=== PATIENT | male | born 1935 | race Caucasian/White ===

== ENCOUNTER 2023-01-27 00:52 | Inpatient (IN) ==
[2023-01-27] MEDS ORDERED: ONDANSETRON INJ 2 MG/ML 2 ML VIAL ONE ×2 (01:03→15:32)
[2023-01-27] MEDS ORDERED: SODIUM CHLORIDE 0.9% 250 ML IV ONE (01:23)
[2023-01-27] MEDS ORDERED: fentaNYL citrate PF 100 MCG/2 ML VIAL IV ONE (01:23)
[2023-01-27] MEDS ORDERED: ONDANSETRON INJ 2 MG/ML 2 ML VIAL IV STA (01:23)
[2023-01-27] MEDS: SODIUM CHLORIDE 0.9% 1,000 ML IV SCH ×3 (01:30→18:24)
[2023-01-27 01:32] LABS: Basophils # (auto) 0.06 K/uL (0.00-0.20); Basophils % (auto) 0.7 %; Eosinophils # (auto) 0.09 K/uL (0.00-0.50); Hematocrit (blood only) 44.9 % (42.0-52.0); Hemoglobin 14.6 g/dl (14.0-18.0); Immature Granulocytes # (auto) 0.04 K/uL (0.01-0.20); Immature Granulocytes % (auto) 0.5 %; Lymphocytes # (auto) 1.07 K/uL (1.20-3.40); Lymphocytes % (auto) 12.2 %; Mean Corpuscular Hemoglobin 28.9 pg (25.0-34.0); Mean Corpuscular Hgb Conc 32.5 g/dL (32.0-36.0); Mean Corpuscular Volume 88.9 fL (80.0-100.0); Mean Platelet Volume 10.9 fL (9.4-12.4); Monocytes # (auto) 0.39 K/uL (0.11-0.59); Monocytes % (auto) 4.4 %; Neutrophils # (auto) 7.14 K/uL (1.40-6.50); Neutrophils % (auto) 81.2 %; Platelet Count 221 K/uL (130-400); RDW Coefficient of Variation 14.1 % (11.5-14.5); RDW Standard Deviation 45.1 fL (36.4-46.3); Red Blood Count 5.05 M/uL (4.70-6.10); White Blood Count 8.79 K/ul (4.8-10.8)
--- NOTE | 2023-01-27 01:39 | Emergency Department Note ---
Impression & Plan Cholecystitis ED Provider Note CHIEF COMPLAINT: Epigastric abdominal pain HISTORY OF PRESENT ILLNESS: This 87-year-old male patient with no significant past medical history other than a history of smoking presents to the emergency department with complaints of epigastric abdominal pain that radiates to the chest. Patient states she thought it was indigestion after eating at a greasy meal at a restaurant today for lunch. He denies any nausea, vomiting or fevers. He was uncertain about a bowel movement but believes he had one yesterday that was normal. Patient presented to the emergency department because he was concerned about his heart. REVIEW OF SYSTEMS: A review of systems was performed with positives and pertinent negatives listed in the history of present illness. 10 systems were reviewed and are otherwise negative. ALLERGIES: see below MEDICATIONS: see below PMH: see below SOCIAL HISTORY: see below DDx: GERD, peptic ulcer disease, pancreatitis, cholecystitis, CAD, pneumonia among others. PHYSICAL EXAM: Vital signs reviewed. General: Well-appearing 87-year-old male, in no significant distress. HEENT: No scleral icterus, PERRLA, neck supple. Moist mucous membranes Cardiovascular: Regular rate and rhythm, no extra sounds. Pulmonary: Clear to auscultation bilaterally, normal work of breathing. Abdomen: Soft, tender to palpation in the right upper quadrant and epigastric region with minimal guarding, no rebounding, nondistended, positive bowel sounds. Musculoskeletal: Atraumatic, no peripheral edema. Neurologic: Patient awake alert and oriented x 3, speech is clear Skin: Warm, dry, no rash EMERGENCY DEPARTMENT COURSE/MDM: This patient was evaluated and appeared to be in no significant distress. IV access was obtained and laboratory work was drawn. Patient was placed on panel monitor. Patient received some IV fentanyl and IV Zofran for his discomfort. He was given 250 mL bolus of normal saline solution, and then run at 100 mL/h. EKG reveals no evidence of acute ischemic change. Chest x-ray is clear. Physical examination revealed some tenderness along the epigastric and right upper quadrant. Ultrasound of the gallbladder was performed and is significant for some mild gallbladder wall thickening and cholelithiasis. Patient's laboratory work reveals a normal WBC, normal troponin and normal LFTs. Case was discussed with general surgery Hoang Padilla PA-C who was agreed to evaluate the patient. Patient was medicated with IV Mefoxin. Patient will be evaluated by the hospitalist service for admission and general surgery consultation. Patient and family are aware of the plan and agreed. MONITORING: An order for cardiac monitoring was placed and the patient is noted to be in a sinus rhythm with first-degree AV block at 65 beats per minute. RADIOLOGY: Chest x-ray to my interpretation reveals no focal lung consolidation or failure, otherwise defer to radiology below. Ultrasound of the gallbladder to my interpretation reveals mild wall thickening and cholelithiasis. Otherwise defer to radiology's overread below. CT of the abdomen and pelvis to my interpretation is concerning for acute cholecystitis with cholelithiasis. Otherwise defer to radiology's read below. EKG: To my interpretation reveals sinus bradycardia with first-degree AV block at 53 bpm. left anterior fascicular block. No PVC, no PAC. Normal ST segments. DISPOSITION: Admission Past Med/Surg History Social History Smoking Status: Former smoker Second Hand Exposure: No; Do You Dip or Chew Tobacco: No; Hx Alcohol Use: No Hx Substance Use: No Preferred Language: Slovak Communication Ability: Effective Visual Impairment: Partially Limited Mold Sprayer Required: No Beliefs That Will Affect Care: None Current Living Situation: Spouse Feels Safe at Home: Yes Assistive Devices: None Allergies Allergies Allergy/AdvReac Type Severity Reaction Status Date / Time No Known Allergies Allergy Mild Verified 01/27/23 01:56 Home Meds Home Medications Medication Instructions Recorded Confirmed timolol maleate 0.5 % eye drops 1 drp ophthalmic (eye) DIRECTED 01/27/23 01/27/23 vit C 250 mg-vit E 90 mg-zinc 40 1 tab PO BID 01/27/23 01/27/23 mg-copper 1 [id number] capsule (PreserVision AREDS-2) Previous Rx's Medication Instructions Recorded amoxicillin 875 mg-potassium 1 tab PO Q12H Surgery 10 days #20 01/28/23 clavulanate 125 mg tablet tabs Results & Data (ED) Vital Signs Vital Signs - 24 hr 01/27/23 01:00 01/27/23 01:01 01/27/23 01:01 Temperature 36.1 C L Temperature Source Oral Pulse Rate 60 56 L Respiratory Rate 15 Blood Pressure 110/67 Blood Pressure Mean 81 Pulse Oximetry 95 Oxygen Delivery Method Room Air Room Air Sepsis Recent Fever Within 48 Hours No Sepsis New/Unexplained Change in Mental Status No Sepsis Action Taken by Nursing No Action Required Home Medications Current Medication List: was personally reviewed by me Laboratory Data Attestation: I reviewed the patient's lab results. 01/29/23 05:33 01/29/23 05:33 Lab Results 01/27/23 01/27/23 Range/Units 00:28 02:34 WBC 8.79 (4.8-10.8) K/ul RBC 5.05 (4.70-6.10) M/uL Hgb 14.6 (14.0-18.0) g/dl Hct 44.9 (42.0-52.0) % MCV 88.9 (80.0-100.0) fL MCH 28.9 (25.0-34.0) pg MCHC 32.5 (32.0-36.0) g/dL RDW Std Deviation 45.1 (36.4-46.3) fL RDW Coeff of Ciera 14.1 (11.5-14.5) % Plt Count 221 (130-400) K/uL MPV 10.9 (9.4-12.4) fL Immature Gran % (Auto) 0.5 % Neut % (Auto) 81.2 % Lymph % (Auto) 12.2 % Mower % (Auto) 4.4 % Eos % (Auto) 1.0 % Baso % (Auto) 0.7 % Neut # (Auto) 7.14 H (1.40-6.50) K/uL Lymph # (Auto) 1.07 L (1.20-3.40) K/uL Mower # (Auto) 0.39 (0.11-0.59) K/uL Eos # (Auto) 0.09 (0.00-0.50) K/uL Baso # (Auto) 0.06 (0.00-0.20) K/uL Immature Gran # (Auto) 0.04 (0.01-0.20) K/uL Sodium Cancelled 141 Potassium Cancelled 4.6 Chloride Cancelled 109 H Carbon Dioxide Cancelled 28 Anion Gap Cancelled 4 BUN Cancelled 18 Creatinine Cancelled 0.86 Est Cr Clr Drug Dosing Cancelled 64.6 Est GFR ( Amer) Cancelled 90.4 Est GFR (Non-Af Amer) Cancelled 78.0 BUN/Creatinine Ratio Cancelled 20.9 H Glucose Cancelled 148 H Calcium Cancelled 9.3 Total Bilirubin Cancelled 0.6 AST Cancelled 18 ALT Cancelled 11 Alkaline Phosphatase Cancelled 56 Troponin I High Sens Cancelled 3.5 Total Protein Cancelled 6.7 Albumin Cancelled 3.8 Globulin Cancelled 2.9 Albumin/Globulin Ratio Cancelled 1.3 Lipase Cancelled 72 Administered Medications Discontinued Medications Bupivacaine HCl/Epinephrine Bitart (Bupivacaine/Epinephrine 0.5% Mpf 1:200,000 30 Ml Vial) Confirm Administered Dose 30 ml .ROUTE .STK-MED ONE Stop: 01/27/23 15:04 Last Admin: 01/27/23 16:42 Dose: 6 ml Documented By: KASEY Cefazolin Sodium (Cefazolin 2,000 Mg/15 Ml Iv Push) Confirm Administered Dose 2,000 mg IV .STK-MED ONE Stop: 01/27/23 15:25 Last Admin: 01/27/23 15:24 Dose: 2,000 mg Documented By: [id number] Fentanyl Citrate (Fentanyl Citrate Pf 100 Mcg/2 Ml Vial) 25 mcg IV NOW ONE Stop: 01/27/23 01:24 Last Admin: 01/27/23 01:35 Dose: 25 mcg Documented By: DHRUV Heparin Sodium (Porcine) (Heparin Sod 5,000 Unit/0.5 Ml Vial) 5,000 units SQ Q12 RIA Stop: 02/26/23 08:59 Last Admin: 01/27/23 10:20 Dose: 5,000 units Documented By: BRENDEN Sodium Chloride (Nss) 250 mls @ 999 mls/hr IV .Q16M ONE Stop: 01/27/23 01:38 Last Infusion: 01/27/23 02:45 Dose: Infused Documented By: Admin: 01/27/23 01:38 Dose: 999 mls/hr Documented By: DHRUV Sodium Chloride (Nss) 1,000 mls @ 100 mls/hr IV .Q10H RIA Stop: 02/26/23 01:29 Last Infusion: 01/28/23 11:07 Dose: Infused Documented By: Admin: 01/28/23 03:11 Dose: 125 mls/hr Documented By: Infusion: 01/28/23 02:24 Dose: Infused Documented By: Admin: 01/27/23 18:24 Dose: 125 mls/hr Documented By: Infusion: 01/27/23 18:20 Dose: Infused Documented By: Admin: 01/27/23 10:20 Dose: 125 mls/hr Documented By: Infusion: 01/27/23 09:30 Dose: Infused Documented By: Admin: 01/27/23 01:30 Dose: 125 mls/hr Documented By: MAUROS Cefoxitin Sodium (Mefoxin) 2,000 mg in 60 mls @ 100 mls/hr IV NOW STA Stop: 01/27/23 05:00 Last Admin: 01/27/23 05:35 Dose: Not Given Documented By: CARMEN Ceftriaxone Sodium 2,000 mg/ (Dextrose) 50 mls @ 100 mls/hr IV Q24H RIA; Protocol Stop: 01/31/23 05:59 Last Infusion: 01/28/23 06:42 Dose: Infused Documented By: Admin: 01/28/23 06:03 Dose: 100 mls/hr Documented By: Infusion: 01/27/23 07:29 Dose: Infused Documented By: Admin: 01/27/23 06:25 Dose: 100 mls/hr Documented By: CARMEN Acetaminophen (Ofirmev) 1,000 mg in 100 mls @ 400 mls/hr IV Q8H PRN PRN Reason: Pain or Fever Stop: 01/30/23 05:32 Last Infusion: 01/27/23 12:30 Dose: Infused Documented By: Admin: 01/27/23 11:59 Dose: 400 mls/hr Documented By: BRENDEN Pantoprazole Sodium 40 mg/ (Syringe) 10 mls @ 5 mls/min IV DAILY@1100 RIA Stop: 02/26/23 10:59 Last Admin: 01/27/23 10:20 Dose: 5 mls/min Documented By: BRENDEN Lactated Ringer's (Lr) 1,000 mls @ 15 mls/hr IV .Q24H RIA Stop: 02/26/23 14:44 Last Infusion: 01/27/23 20:16 Dose: Infused Documented By: Admin: 01/27/23 14:40 Dose: 15 mls/hr Documented By: HBM Influenza Virus Vaccine (Influenza Vaccine High-Dose (Hd-Iiv4) Pf 65+ 0.7ml Syr) 0.7 ml IM .ONCE ONE Stop: 01/27/23 12:01 Last Admin: 01/29/23 13:06 Dose: Not Given Documented By: MAEGAN Ioversol (Optiray 320 100ml) 100 ml IV ONCE ONE Stop: 01/27/23 04:07 Last Admin: 01/27/23 04:06 Dose: 91 ml Documented By: GRIFFIN Miscellaneous (Timolol Maleate 0.5 % Drops: Order Awaiting Action) 1 each N/A QS RIA Stop: 02/27/23 00:00 Last Admin: 01/28/23 08:26 Dose: Not Given Documented By: Admin: 01/28/23 00:23 Dose: Not Given Documented By: CARMEN Morphine Sulfate (Morphine Sulfate 2 Mg/Ml Carp) 2 mg IV NOW STA Stop: 01/27/23 12:49 Last Admin: 01/27/23 13:07 Dose: 2 mg Documented By: BRENDEN Morphine Sulfate (Morphine Sulfate 2 Mg/Ml Carp) 2 mg IV Q3H PRN PRN Reason: Pain Stop: 02/10/23 12:47 Last Admin: 01/27/23 19:23 Dose: 2 mg Documented By: CARMEN Ondansetron HCl (Ondansetron Inj 2 Mg/Ml 2 Ml Vial) Confirm Administered Dose 4 mg .ROUTE .STK-MED ONE Stop: 01/27/23 01:04 Last Admin: 01/27/23 01:34 Dose: Not Given Documented By: DHRUV Ondansetron HCl (Ondansetron Inj 2 Mg/Ml 2 Ml Vial) 4 mg IV NOW STA Stop: 01/27/23 01:24 Last Admin: 01/27/23 01:35 Dose: 4 mg Documented By: DHRUV Pantoprazole Sodium (Pantoprazole 40 Mg Tab) 40 mg PO QAM RIA Stop: 02/28/23 08:59 Last Admin: 01/29/23 10:16 Dose: 40 mg Documented By: MAEGAN Timolol Maleate (Timolol Maleate 0.5% Op Soln 5 Ml Btl) 1 drops OP DAILY RIA Stop: 02/27/23 10:29 Last Admin: 01/28/23 11:40 Dose: 1 drops Documented By: BRENDEN Timolol Maleate (Timolol Maleate 0.5% Op Soln 5 Ml Btl) 1 drops OPR BID RIA Stop: 02/27/23 20:59 Last Admin: 01/29/23 10:16 Dose: 1 drops Documented By: Admin: 01/28/23 19:45 Dose: 1 drops Documented By: DAGO Imaging Data Radiologist's Impression: Gallbladder Ultrasound 01/27/23 01:23 Exam(s): US GALLBLADDER EXAM: US Abdomen Limited, Gallbladder CLINICAL HISTORY: Reason for exam: RUQ abd pain. TECHNIQUE: Real-time ultrasound of the right upper quadrant with image documentation. COMPARISON: No relevant prior studies available. FINDINGS: Liver: Complex 2.2 x 1.6 cm cyst in the caudate lobe of the liver. There are multiple septations. Gallbladder: Multiple gallstones. Sludge. There is mild gallbladder wall thickening at 4 mm. Common bile duct: Unremarkable as visualized. No stones. No dilation. Pancreas: Unremarkable as visualized. Right kidney: 14 x 9 mm cyst in the right kidney. Nodular area of relative increased echogenicity in the superior pole of the right kidney. This is somewhat ill-defined and measures approximate 20 x 22 x 27 mm. This may represent a mass. IMPRESSION: Gallstones with mild gallbladder wall thickening. Rounded area of relative increased echogenicity in the superior pole of the right kidney. A mass is difficult to exclude. Consider further evaluation with CT or MRI without and with contrast. Electronically signed by: Maged Rodas MD 01/27/23 03:35 AM Chest X-Ray 01/27/23 01:25 XR chest 1V portable CLINICAL HISTORY: Chest pain. COMPARISON STUDY: Chest radiograph July 22, 2014. CTA of the chest January 10, 2015. FINDINGS: Lung volumes are normal. Lungs are clear. Calcified granuloma within the left lower lobe is incidentally noted. There is no pneumothorax or pleural effusion. Cardiac size is stable. Mediastinal contours are normal. There is no evidence for pulmonary edema. IMPRESSION: No acute cardiopulmonary findings. No significant change in appearance of the chest. ACT 112: Negative or not required by law. Electronically signed by: Terrell Rucker M.D. 01/27/2023 6:43 AM Abdomen/Pelvis CT 01/27/23 03:45 Exam(s): CT ABDOMEN + PELVIS With Contrast IV Amt: 91 ML OPTIRAY 320 EXAM: CT Abdomen and Pelvis With Intravenous Contrast CLINICAL HISTORY: Reason for exam: Adriana, RUQ pain, poss R renal mass. TECHNIQUE: Axial computed tomography images of the abdomen and pelvis with intravenous contrast. CTDI is 21.6 mGy and DLP is 1106.33 mGy-cm. Automated exposure control was utilized for the study. A dose lowering technique was utilized adhering to the principles of ALARA. CONTRAST: Patient received 91 ML OPTIRAY 320 of IV contrast COMPARISON: No relevant prior studies available. FINDINGS: Lung bases: Unremarkable. No mass. No consolidation. ABDOMEN: Liver: Unremarkable. No mass. Gallbladder and bile ducts: Gallstones. Mild gallbladder wall thickening. There is pericholecystic edema and fluid. No ductal dilation. Pancreas: Unremarkable. No mass. No ductal dilation. Spleen: Unremarkable. No splenomegaly. Adrenals: Unremarkable. No mass. Kidneys and ureters: Unremarkable. No solid mass. No hydronephrosis. No urinary tract calculus. Stomach and bowel: Unremarkable. No obstruction. No mucosal thickening. PELVIS: Appendix: No findings to suggest acute appendicitis. Bladder: Unremarkable. No mass. Reproductive: Unremarkable as visualized. ABDOMEN and PELVIS: Intraperitoneal space: Unremarkable. No free air. No significant fluid collection. Bones/joints: No acute fracture. No dislocation. Soft tissues: Unremarkable. Vasculature: Unremarkable. No abdominal aortic aneurysm. Lymph nodes: Unremarkable. No enlarged lymph nodes. IMPRESSION: Gallstones with mild gallbladder wall thickening as well as pericholecystic edema and fluid. The findings are highly suspicious for acute cholecystitis. No evidence of renal mass. Electronically signed by: Maged Rodas MD 01/27/23 05:11 AM Discharge Plan Visit Data Chief Complaint: Chest Pain Stated Complaint: CHEST PAIN ED Provider: Virginia Mcnair Discharge Problem: Cholecystitis Patient Disposition: Admitted As Inpatient Condition: Good Discharge Instructions Interventions: ED Discharge Assessment Last Done: 01/27/23 05:11
[2023-01-27 03:11] LABS: Albumin Globulin Ratio 1.3 (0.9-2); Albumin Level 3.8 gm/dl (3.4-5.0); BUN Creatinine Ratio 20.9 (10-20); Bilirubin,Total 0.6 mg/dl (0.2-1.0); Calcium 9.3 mg/dl (8.6-10.3); Creatinine Clr Calc Pharmacy 64.6 ml/min; Est GFR (African American) 90.4 ml/min; Globulin 2.9 gm/dl (2.5-4.0); Potassium 4.6 mmol/L (3.5-5.1); Total Protein 6.7 gm/dl (6.0-8.3)
[2023-01-27 03:17] LABS: Troponin I High Sensitivity 3.5 pg/ml (0-20)
--- NOTE | 2023-01-27 03:36 | Ultrasound Report ---
Exam(s): US GALLBLADDER EXAM: US Abdomen Limited, Gallbladder CLINICAL HISTORY: Reason for exam: RUQ abd pain. TECHNIQUE: Real-time ultrasound of the right upper quadrant with image documentation. COMPARISON: No relevant prior studies available. FINDINGS: Liver: Complex 2.2 x 1.6 cm cyst in the caudate lobe of the liver. There are multiple septations. Gallbladder: Multiple gallstones. Sludge. There is mild gallbladder wall thickening at 4 mm. Common bile duct: Unremarkable as visualized. No stones. No dilation. Pancreas: Unremarkable as visualized. Right kidney: 14 x 9 mm cyst in the right kidney. Nodular area of relative increased echogenicity in the superior pole of the right kidney. This is somewhat ill-defined and measures approximate 20 x 22 x 27 mm. This may represent a mass. IMPRESSION: Gallstones with mild gallbladder wall thickening. Rounded area of relative increased echogenicity in the superior pole of the right kidney. A mass is difficult to exclude. Consider further evaluation with CT or MRI without and with contrast. Electronically signed by: Maged Rodas MD 01/27/23 03:35 AM
[2023-01-27] MEDS ORDERED: OPTIRAY 320 100ml IV ONE (04:06)
--- NOTE | 2023-01-27 04:13 | Surgery Consultation ---
Date of Consultation January 27, 2023 Assessment & Plan (1) Cholecystitis: I discussed with the treating emergency room physician. The patient is being admitted on the hospitalist service. We would recommend proceeding as follows from a surgical perspective: The patient may be suffering from biliary colic as he is noted to have multiple gallstones and some mild gallbladder wall thickening on imaging. This is noted on both CT scan of the abdomen and pelvis along with the gallbladder ultrasound Provide analgesics Provide antiemetics Follow serial labs Implement n.p.o. status Provide IV fluid for hydration Recommend initiating antibiotics. The treating emergency room physician has initiated Mefoxin I discussed the case with my attending physician, Dr. Carrera. We have tentatively added the patient to the operating room schedule for 01/27/2023 for a cholecystectomy. Discharge recommendations to be forthcoming based on his clinical course as it unfolds As above. Patient seen. Continues to have epigastric pain as well as nausea. Clinically consistent with acute cholecystitis. Discussed with him and his family. Recommend laparoscopic cholecystectomy. Discussed potential risks which include bleeding, infection, injury to bile duct, injury to other organs, DVT, PE, IN, CVA etc. Following our discussion he developed questions. We will proceed with laparoscopic cholecystectomy. History of Present Illness Reason for Consultation: Cholecystitis History of Present Illness This is an 87-year-old male who presented the emergency department secondary to chest pain. Patient noted that he felt like there was a weight on his chest. He notes that the pain was not radiating down his arms and he did not break out in a sweat. When asked to pinpoint the area of pain however, the patient would point to his epigastric area. He notes he has never had pain like this before and it is unrelated to meals. Over the past several weeks to months he denies any postprandial pain. Patient notes that he did have nausea without vomiting. He has never had any abdominal surgeries in the past before. With his current pain he denies any radiation of the pain and he denies any mitigating factors other than that the pain was relieved with some medicines administered in the emergency department Since arrival to the hospital the patient has had labs and imaging which I independent reviewed. Chest x-ray did not show any evidence of pneumonia. Gallbladder ultrasound showed the patient had multiple gallstones with gallbladder sludge and mild gallbladder wall thickening. There is no biliary ductal dilatation. There is concern the patient had a renal mass measuring approximately 20 x 22 x 27 mm of the right kidney. The patient did undergo a CT scan of the abdomen and pelvis as well. This showed the patient had gallstones with mild gallbladder wall thickening and some pericholecystic edema and fluid which was concerning for cholecystitis. No renal masses were noted on this study. Labs include a CBC her white blood cell count, hemoglobin, hematocrit, platelet count were normal. Chemistry profile showed sodium and potassium along with BUN and creatinine were within normal range. The patient's bilirubin, transaminases, and alkaline phosphatase were all within normal range. There is no elevation of his lipase. An EKG was performed that showed sinus bradycardia with first-degree AV block. There did not appear any evidence of acute ischemia on the study At the time of my interview he was resting comfortably bed and he was no d istress. Concerning past medical history the patient denies any medical problems Concerning past surgical history he denies any prior surgeries Concerning social history he is a former smoker Concerning family history the patient's father suffered from a heart attack Allergies Allergy/AdvReac Type Severity Reaction Status Date / Time No Known Allergies Allergy Mild Verified 01/27/23 01:56 Home Medications Medication Instructions Recorded Confirmed Type timolol maleate 0.5 % eye drops 1 drp ophthalmic (eye) DIRECTED 01/27/23 01/27/23 History vit C 250 mg-vit E 90 mg-zinc 40 1 tab PO BID 01/27/23 01/27/23 History mg-copper 1 [id number] capsule (PreserVision AREDS-2) Patient History Social History Smoking Status: Former smoker Second Hand Exposure: No; Do You Dip or Chew Tobacco: No; Hx Alcohol Use: No Hx Substance Use: No Preferred Language: Sami Communication Ability: Effective Business Development Recruiter Required: No Beliefs That Will Affect Care: None Current Living Situation: Spouse Other Information That Helps Us Care for You: No Feels Safe at Home: Yes Safety Concerns: Feels Safe At This Time Assistive Devices: None Review of Systems Constitutional: no fever and no chills Ear, Nose, Mouth, Throat: no hearing loss Respiratory: no cough and no dyspnea Cardiovascular: no chest pain Gastrointestinal: as per Subjective / HPI Genitourinary: no dysuria Musculoskeletal: no back pain Integumentary: no rash Neurologic: no localized weakness Physical Exam Constitutional: WD/WN, vitals as above Eyes: + anicteric sclerae ENMT: Ears: no hearing impairment and no external ear abnormality Mouth: no oropharynx abnormality Neck: trachea midline Respiratory: normal respiratory effort; no respiratory distress and no labored breathing Cardiovascular: Rate/Rhythm: regular rate and regular rhythm Gastrointestinal (Abdomen): Patient's abdomen is soft and nondistended. It is nonrigid. At the time of my exam there is no pain with palpation in the epigastric area or in the right upper quadrant. Grey sign is noted to be negative. Musculoskeletal: No calf tenderness Skin: no rashes Neurologic: moves all extremities Psychiatric: A+Ox3, euthymic affect Results & Data Vital Signs (Past 12 Hours) Vital Signs Temp Pulse Pulse Resp BP BP Pulse Ox 01/27/23 03:30 94/64 L 01/27/23 03:30 68 21 98 01/27/23 03:05 70 20 97 01/27/23 03:05 122/78 01/27/23 03:00 66 21 98 01/27/23 02:43 65 18 99/59 L 94 01/27/23 02:42 93 01/27/23 01:01 01/27/23 01:01 36.1 C L 56 L 15 110/67 95 01/27/23 01:00 60 O2 Del Method 01/27/23 03:30 01/27/23 03:30 01/27/23 03:05 01/27/23 03:05 01/27/23 03:00 01/27/23 02:43 Room Air 01/27/23 02:42 Room Air 01/27/23 01:01 Room Air 01/27/23 01:01 Room Air 01/27/23 01:00 PG Care Time/CCT Total # of Minutes Spent Total Time Spent with Patient: Total time spent is greater than 50% in coordination of care (as documented) at patient's floor/unit and/or counseling patient: Coding Level of Care Code 34575 INT INP/OBS CARE 3/75MIN Diagnoses Cholecystitis K81.9
[2023-01-27] MEDS ORDERED: cefOXitin 2,000 MG/60 ML BAG IV STA (04:25)
--- NOTE | 2023-01-27 04:36 | History & Physical Report ---
Date of Service January 27, 2023 Assessment & Plan (1) Cholecystitis: Plan: 87 M with no significant PMH who presented with epigastric abdominal pain and discovered to have gallstones with sludge, wall thickening on ultrasound. Now stable, admitted for management of acute cholecystitis. Cholecystitis -Gallstones, biliary sludge, gallbladder wall thickening seen on ultrasound. -Now s/p IVF bolus, maintenance IVF, analgesics, and antiemetics. -CT A/P performed. Awaiting radiology report. * Admit to [facility]. N.p.o. * General surgery consulted, following. Recommended nonsurgical management as below: * Pain control: IV Tylenol 1000 mg every 8 hours as needed * Antiemetics: IV Zofran 4 g every 4 hours as needed * Continuing IVF hydration: NS@125 mL/h * Antibiotics: IV ceftriaxone 2 g every 24 hours * HIDA scan ordered Code: Full code Dispo: Med-Surg FEN/GI: NPO. NS @maintenance rate DVT Prophylaxis: Heparin 5000 u q12h PT/OT: Yes Consults: General Surgery Case Management: No History of Present Illness Primary Care Provider: [facility] Mendoza is an 87-year-old man with no significant past medical history who presented to the emergency room with an acute episode of progressive worsening nonradiating epigastric abdominal pain. Patient was at his 's high school reunion. He recalls eating a cheese steak sandwich and his pain started slowly but gradually worse after that. ROS + nausea. He denies headache, shortness of breath, back pain, hematuria, or prior abdominal surgery. In the ED, vitals were stable, within normal limits. Labs were mostly normal. He had no leukocytosis (WBC-8.79), anemia, or thrombocytopenia. CMP was mostly normal, save for elevated glucose-148. AST/ALT were normal-18/11. Alk phos was also normal-56. Troponin-3.5. Lipase-72. Gallbladder ultrasound, however, revealed multiple gallstones with sludge, mild gallbladder wall thickening at 4 mm. It also revealed a 14 x 9 mm cyst in the right kidney, and an approximately 20 x 22 x 27 mm area of increased echogenicity in the superior pole of the right kidney. He received IV cefoxitin 2 g, an NS bolus x0.25 L, fentanyl for pain control, and IV Zofran. General surgery was consulted, who recommended admission for nonsurgical management, with surgery following. Hospitalist service was then consulted for admission. Allergies Allergy/AdvReac Type Severity Reaction Status Date / Time No Known Allergies Allergy Mild Verified 01/27/23 01:56 Home Medications Medication Instructions Recorded Confirmed Type timolol maleate 0.5 % eye drops 1 drp ophthalmic (eye) DIRECTED 01/27/23 01/27/23 History vit C 250 mg-vit E 90 mg-zinc 40 1 tab PO BID 01/27/23 01/27/23 History mg-copper 1 [id number] capsule (PreserVision AREDS-2) amoxicillin 875 mg-potassium 1 tab PO Q12H Surgery 10 days #20 01/28/23 Rx clavulanate 125 mg tablet tabs Past Med/Surg History Social History Smoking Status: Former smoker Second Hand Exposure: No; Do You Dip or Chew Tobacco: No; Hx Alcohol Use: No Hx Substance Use: No Preferred Language: Turkmen Communication Ability: Effective Visual Impairment: Partially Limited Physical Scientist Required: No Beliefs That Will Affect Care: None Current Living Situation: Spouse Feels Safe at Home: Yes Assistive Devices: None Review of Systems Review of Systems: All systems reviewed & are unremarkable except as noted in HPI & below Physical Exam Physical Exam: General: No acute distress HEENT: PERRLA. Normal conjunctiva, anicteric sclera. Oropharynx normal. Respiratory: Normal respiratory effort, CTABL. Cardiovascular: RRR without murmurs, gallops, or rubs. No pedal edema. GI: Soft abdomen. Mild epigastric tenderness to palpation. Neuro: Alert and oriented x3. Results & Data Results & Data Vital Signs (Past 12 Hours) Vital Signs Temp Pulse Pulse Resp BP BP Pulse Ox 01/27/23 03:30 94/64 L 01/27/23 03:30 68 21 98 01/27/23 03:05 70 20 97 01/27/23 03:05 122/78 01/27/23 03:00 66 21 98 01/27/23 02:43 65 18 99/59 L 94 01/27/23 02:42 93 01/27/23 01:01 01/27/23 01:01 36.1 C L 56 L 15 110/67 95 01/27/23 01:00 60 O2 Del Method 01/27/23 03:30 01/27/23 03:30 01/27/23 03:05 01/27/23 03:05 01/27/23 03:00 01/27/23 02:43 Room Air 01/27/23 02:42 Room Air 01/27/23 01:01 Room Air 01/27/23 01:01 Room Air 01/27/23 01:00 Supervising Physician Co-Signing Physician Notes Attending addendum: I have physically seen this patient, have supervised the medical residents activities, and agree with the H&P unless as otherwise noted. Assessment and Plan: Cholecystitis- Gallbladder ultrasound with gallstones, mild gallbladder wall thickening NPO Admit to MedSurg Pain control with Tylenol IV 1 mg every 8 hours as needed for pain or fever Zofran 4 mg IV every 4 hours as needed NSS 125 MLS per hour Ceftriaxone 2 g IV daily HIDA scan with gallbladder ejection fraction Consult general surgery Resident Activity Tracking Resident Involvement: Resident Care Provided Care Provided: Adult Hospital Medicine
--- NOTE | 2023-01-27 05:12 | CT Scan Report ---
Exam(s): CT ABDOMEN + PELVIS With Contrast IV Amt: 91 ML OPTIRAY 320 EXAM: CT Abdomen and Pelvis With Intravenous Contrast CLINICAL HISTORY: Reason for exam: Adriana, RUQ pain, poss R renal mass. TECHNIQUE: Axial computed tomography images of the abdomen and pelvis with intravenous contrast. CTDI is 21.6 mGy and DLP is 1106.33 mGy-cm. Automated exposure control was utilized for the study. A dose lowering technique was utilized adhering to the principles of ALARA. CONTRAST: Patient received 91 ML OPTIRAY 320 of IV contrast COMPARISON: No relevant prior studies available. FINDINGS: Lung bases: Unremarkable. No mass. No consolidation. ABDOMEN: Liver: Unremarkable. No mass. Gallbladder and bile ducts: Gallstones. Mild gallbladder wall thickening. There is pericholecystic edema and fluid. No ductal dilation. Pancreas: Unremarkable. No mass. No ductal dilation. Spleen: Unremarkable. No splenomegaly. Adrenals: Unremarkable. No mass. Kidneys and ureters: Unremarkable. No solid mass. No hydronephrosis. No urinary tract calculus. Stomach and bowel: Unremarkable. No obstruction. No mucosal thickening. PELVIS: Appendix: No findings to suggest acute appendicitis. Bladder: Unremarkable. No mass. Reproductive: Unremarkable as visualized. ABDOMEN and PELVIS: Intraperitoneal space: Unremarkable. No free air. No significant fluid collection. Bones/joints: No acute fracture. No dislocation. Soft tissues: Unremarkable. Vasculature: Unremarkable. No abdominal aortic aneurysm. Lymph nodes: Unremarkable. No enlarged lymph nodes. IMPRESSION: Gallstones with mild gallbladder wall thickening as well as pericholecystic edema and fluid. The findings are highly suspicious for acute cholecystitis. No evidence of renal mass. Electronically signed by: Maged Rodas MD 01/27/23 05:11 AM
[2023-01-27] MEDS ORDERED: ACETAMINOPHEN 1,000 MG/100 ML VIAL IV PRN (05:33)
[2023-01-27] MEDS ORDERED: ONDANSETRON INJ 2 MG/ML 2 ML VIAL IV PRN ×3 (05:33→14:45)
[2023-01-27] MEDS: cefTRIAXone SODIUM 2,000 MG in DEXTROSE 5 % MINI-B 50 ML IV SCH (06:25)
--- NOTE | 2023-01-27 06:45 | XRay Report ---
XR chest 1V portable CLINICAL HISTORY: Chest pain. COMPARISON STUDY: Chest radiograph July 22, 2014. CTA of the chest January 10, 2015. FINDINGS: Lung volumes are normal. Lungs are clear. Calcified granuloma within the left lower lobe is incidentally noted. There is no pneumothorax or pleural effusion. Cardiac size is stable. Mediastina l contours are normal. There is no evidence for pulmonary edema. IMPRESSION: No acute cardiopulmonary findings. No significant change in appearance of the chest. ACT 112: Negative or not required by law. Electronically signed by: Terrell Rucker M.D. 01/27/2023 6:43 AM
[2023-01-27] MEDS ORDERED: HEPARIN SOD 5,000 UNIT/0.5 ML VIAL SQ SCH ×2 (09:00)
[2023-01-27] MEDS ORDERED: PANTOprazole 40 MG in SYRINGE 0 ML IV SCH (11:00)
[2023-01-27] MEDS ORDERED: INFLUENZA VACCINE HIGH-DOSE (HD-IIV4) PF 65+ 0.7mL SYR IM ONE (12:00)
[2023-01-27] MEDS ORDERED: MoRPHine SULFATE 2 MG/ML CARP IV PRN (12:48)
[2023-01-27] MEDS ORDERED: MoRPHine SULFATE 2 MG/ML CARP IV STA (12:48)
[2023-01-27] MEDS ORDERED: ATROPINE SULFATE 0.1 MG/ML 10ML SYR IV PRN ×2 (14:24→14:45)
[2023-01-27] MEDS ORDERED: fentaNYL citrate PF 100 MCG/2 ML VIAL IV PRN ×2 (14:24→14:45)
[2023-01-27] MEDS ORDERED: ePHEDrine sulfate 50 MG/ML AMP IV PRN ×2 (14:24→14:45)
--- NOTE | 2023-01-27 14:43 | Anesthesiology Consultation ---
Date of Service January 27, 2023 Assessment & Plan Chart Review Chart Review: Acceptable Risk for Surgery Consults Requested none History Surgery Operation Date: 01/27/23 11:10 Proposed Procedures p Laparoscopic Cholecystectomy Possible Open - Alfredo Carrera DO Height/Weight Height: 5 ft 7 in Weight: 83.5 kg Allergies Allergy/AdvReac Type Severity Reaction Status Date / Time No Known Allergies Allergy Mild Verified 01/27/23 01:56 Medications Home Medications Medication Instructions Recorded Confirmed Last Taken timolol maleate 0.5 % eye drops 1 drp ophthalmic (eye) DIRECTED 01/27/23 01/27/23 01/26/23 vit C 250 mg-vit E 90 mg-zinc 40 1 tab PO BID 01/27/23 01/27/23 01/26/23 mg-copper 1 [id number] capsule (PreserVision AREDS-2) Active Medications Generic Name Dose Route Start Last Admin Trade Name Freq PRN Reason Stop Dose Admin Heparin Sodium (Porcine) 5,000 units 01/27/23 09:00 01/27/23 10:20 Heparin Sod 5,000 Unit/0.5 Ml Vial SQ 02/26/23 08:59 5,000 units Q12 RIA Administration Sodium Chloride 1,000 mls @ 100 mls/hr 01/27/23 01:30 01/27/23 10:20 Nss IV 02/26/23 01:29 125 mls/hr .Q10H RIA Administration Ceftriaxone Sodium 2,000 mg/ 50 mls @ 100 mls/hr 01/27/23 06:00 01/27/23 07:29 Dextrose IV 01/31/23 05:59 Infused Q24H RIA Infusion Protocol Acetaminophen 1,000 mg in 100 mls @ 400 mls/hr 01/27/23 05:33 01/27/23 12:30 Ofirmev IV 01/30/23 05:32 Infused Q8H PRN Infusion Pain or Fever Pantoprazole Sodium 40 mg/ 10 mls @ 5 mls/min 01/27/23 11:00 01/27/23 10:20 Syringe IV 02/26/23 10:59 5 mls/min DAILY@1100 RIA Administration Lactated Ringer's 1,000 mls @ 15 mls/hr 01/27/23 14:45 01/27/23 14:40 Lr IV 02/26/23 14:44 15 mls/hr .Q24H RIA Administration NPO Date Last Intake of Fluids: 01/26/23 Time Last Intake of Fluids: 23:00 Date Last Intake of Solids: 01/26/23 Time Last Intake of Solids: 12:00 Social History Smoking Status: Former smoker Do You Dip or Chew Tobacco: No Hx Alcohol Use: No Hx Substance Use: No substance use type: does not use Review of Systems Constitutional: no fever and no chills Ear, Nose, Mouth, Throat: no hearing loss Respiratory: no cough and no dyspnea Cardiovascular: no chest pain Gastrointestinal: as per Subjective / HPI Genitourinary (Male): no dysuria Musculoskeletal: no back pain Integumentary: no rash Neurologic: no localized weakness Physical Exam Vital Signs Last Vital Signs Temp 36.8 C 01/27/23 14:27 Pulse 57 L 01/27/23 14:27 Resp 20 01/27/23 14:27 BP 151/75 H 01/27/23 14:13 Pulse Ox 96 01/27/23 14:27 O2 Del Method Room Air 01/27/23 14:27 Constitutional WD/WN, vitals as above Eyes + anicteric sclerae ENMT Ears: no hearing impairment and no external ear abnormality Mouth: no oropharynx abnormality Neck trachea midline Respiratory normal respiratory effort; no respiratory distress and no labored breathing Cardiovascular Rate/Rhythm: regular rate and regular rhythm Skin no rashes Neurologic moves all extremities Psychiatric A+Ox3, euthymic affect Testing Laboratory Results 01/27/23 00:28 01/27/23 02:34
[2023-01-27] MEDS ORDERED: LACTATED RINGER'S 1,000 ML IV SCH (14:45)
[2023-01-27] MEDS ORDERED: fentaNYL citrate PF 100 MCG/2 ML VIAL ONE ×2 (14:56→15:32)
[2023-01-27] MEDS ORDERED: BUPIVACAINE/EPINEPHRINE 0.5% MPF 1:200,000 30 ML VIAL ONE (15:03)
[2023-01-27] MEDS ORDERED: ceFAZolin 2,000 MG/15 ML IV PUSH IV ONE (15:24)
[2023-01-27] MEDS ORDERED: ceFAZolin 2000MG 2,000 MG/15 ML SYR IV ONE (15:26)
--- NOTE | 2023-01-27 15:28 | Hospitalist Progress Note ---
Date of Service January 27, 2023 Assessment & Plan (1) Cholecystitis: Plan: Appreciate general surgery consultation and recommendations. Laparoscopic cholecystectomy today, January 27. We will keep n.p.o. on IV fluids. Enteral pain control measures ordered (2) History of smoking: Plan: Not a current issue. Plan Hopeful discharge back to home soon Admission and Anticipated Discharge Date Admission Date: January 27, 2023 Subjective The patient was seen preoperatively today. He is alert and oriented. He is complaining of abdominal pain from the acute cholecystitis. Parenteral morphine has been ordered as needed. He remains on IV fluids and is n.p.o. Review of Systems 2 Review of Systems: Constitutional-no fever or chills ENT-no blurred vision, no double vision, no epistaxis, no sore throat Respiratory-no cough, no wheezing, no shortness of breath Cardiac-no palpitations, no chest pain, no syncope GI-some nausea. Right upper quadrant and epigastric discomfort. No vomiting. -no urinary retention, no urinary incontinence, no dysuria, no hematuria Musculoskeletal-no joint pain, no muscle tenderness Skin-no bruising, no rashes, no pruritus Neuro-no isolated weakness, no paresthesia, no weakness Psych-no depression, no anxiety Physical Exam 2 Physical Exam: General-alert and oriented x3, no fevers, no chills HEENT-head atraumatic and normocephalic, pupils equal and reactive to light, extraocular muscles intact Neck-no lymphadenopathy or thyromegaly, trachea midline Chest-clear to auscultation percussion. No rales wheezing or rhonchi Cardiac-regular rate and rhythm, normal S1 and S2 Abdomen-hypoactive bowel sounds. Tenderness to palpation in the epigastric and right upper quadrant areas. No rebound or guarding. No masses Extremities-no cyanosis, clubbing, or edema Neuro-cranial nerves II through XII intact, motor and sensory function within normal limits, strength symmetrical, no focal deficits Psych-normal affect, normal mood Results & Data Results & Data Vital Signs (Past 12 Hours) Vital Signs Temp Pulse Pulse Pulse Resp BP BP 01/27/23 14:27 36.8 C 57 L 20 01/27/23 14:13 36.5 C 95 H 16 151/75 H 01/27/23 07:37 36.3 C L 71 16 105/63 01/27/23 05:36 36.7 C 74 18 138/78 01/27/23 03:30 94/64 L 01/27/23 03:30 68 21 Pulse Ox O2 Del Method 01/27/23 14:27 96 Room Air 01/27/23 14:13 94 Room Air 01/27/23 07:37 95 Room Air 01/27/23 05:36 95 Room Air 01/27/23 03:30 01/27/23 03:30 98 Laboratory Results 01/27/23 00:28 01/27/23 02:34 PG Care Time/CCT Total # of Minutes Spent Total Time Spent with Patient: Total time spent is greater than 50% in coordination of care (as documented) at patient's floor/unit and/or counseling patient: Coding Level of Care Code 77753 SUB INP/OBS CARE 3/50MIN Diagnoses Cholecystitis K81.9 History of smoking Z87.891
[2023-01-27] MEDS ORDERED: ROCURONIUM BROMIDE 10 MG/ML 5 ML VIAL IV ONE ×5 (15:32→15:33)
[2023-01-27] MEDS ORDERED: DEXAMETHASONE SOD INJ 4 MG/ML VIAL ONE (15:32)
[2023-01-27] MEDS ORDERED: PROPOFOL IV EMULSION 10 MG/ML 20 ML VIAL IV ONE (15:32)
[2023-01-27] MEDS ORDERED: LIDOCAINE 2% 2 ML VIAL/AMP(20MG/ML) INFIL ONE (15:32)
[2023-01-27] MEDS ORDERED: SUGAMMADEX SODIUM 200 MG/2 ML VIAL IV ONE (15:51)
[2023-01-27] MEDS ORDERED: METOPROLOL TARTRATE 1 MG/ML VIAL IV ONE (16:02)
--- NOTE | 2023-01-27 17:12 | Operative Report ---
PG Post Operative Report Pre & Post Diagnosis Operation Date: 01/27/23 11:10 Pre-Op Diagnosis: (1) Cholecystitis: Post-Op Diagnosis: (1) Cholecystitis: I identified the patient and participated in the time-out.: Yes Procedure Operation Date: 01/27/23 11:10 Actual Procedures p Laparoscopic Cholecystectomy Possible Open(Not Applicable) - Alfredo Carrera DO Surgeon Alfredo Carrera DO Clamp Carrier Operator candido tucker Estimated Blood Loss 200 Findings Consistent with Post-Op Diagnosis Specimens gallbladder Description of Procedure After informed consent was obtained the patient was taken to the operating room and placed in the supine position. After successful intubation the abdomen was sterilely prepped and draped in usual fashion. A periumbilical incision was made with an 11 blade scalpel and carried down through the soft tissue using electrocautery. The anterior rectus fascia was opened using electrocautery and 2 #0 Vicryl stay sutures were placed. The peritoneum was elevated with hemostats and incised under direct vision using Metzenbaum scissors. A finger sweep was performed and a 12 mm Villela trocar was placed. The abdomen was insufflated to 18 mmHg. The laparoscope was inserted and the abdomen was examined in 360. A subxiphoid 5 mm port and 2 right upper quadrant 5 mm ports were placed under direct vision. The patient was placed in a reverse Trendelenburg position and slightly airplaned to the left. The gallbladder was markedly abnormal. It was extremely inflammed and hard. The gallbladder was grasped and elevated superiorly and laterally. A small tear was made in the gallbladder during this process releasing a small amount of bile into the RUQ. A [place] dissector was used to take down adhesions around the neck of the gallbladder. The cystic duct was identified and skeletonized. It was clipped twice proximally and once distally and transected using a laparoscopic scissor. In similar fashion the cystic artery was identified and skeletonized clipped and divided. The gallbladder was removed from the gallbladder fossa with electrocautery. It was placed into an Endo Catch bag. Thorough irrigation was performed. At the end of the procedure there was adequate hemostasis and no evidence of any bile leaks. Because of the severe inflammation/oozing I decided to place a 10 flat MYA drain into the RUQ. It was brought out of a RUQ port site and secured to the skin using 2-0 nylon. A final look around the abdomen showed no other abnormalities. The gallbladder and trochars were all removed and the abdomen was desufflated. I had to extend the fascial and skin incision to remove the gallbladder. The fascia of the camera port was closed using 0 Vicryl in simple interrupted fashion. All the wounds were irrigated. The large incision was closed using 3-0 vicryl for deep layers and 4-0 Monocryl for skin. The smaller incisions were closed just with 4-0 monocryl. Marcaine was injected around them for postoperative analgesia and skin glue used as a dressing. The patient was awakened, extubated and transferred to recovery in stable condition. My BEATER WORKER HELPER assistant shift supervisor was present throughout the entire case... helped with prepping the patient. With exposure for trocar placement, as well as retracted the gallbladder throughout the case and also assisted with wound closure and dressing placement. I attest to the content of the Intraoperative Record and any orders documented therein. Any exceptions are noted below.
--- NOTE | 2023-01-27 17:48 | Anesthesiology Progress Note ---
Date of Service January 27, 2023 Anesthesia Post Procedure Vital Signs Vital Signs: Temp Pulse Pulse Pulse Resp BP BP 01/27/23 17:40 36.6 C 62 17 128/69 01/27/23 17:30 61 17 131/66 01/27/23 17:20 61 16 131/71 01/27/23 17:10 60 15 144/68 H 01/27/23 17:04 36.6 C 63 16 154/82 H 01/27/23 14:27 36.8 C 57 L 20 01/27/23 14:13 36.5 C 95 H 16 151/75 H 01/27/23 07:37 36.3 C L 71 16 105/63 01/27/23 05:36 36.7 C 74 18 138/78 01/27/23 03:30 94/64 L 01/27/23 03:30 68 21 01/27/23 03:05 70 20 01/27/23 03:05 122/78 01/27/23 03:00 66 21 01/27/23 02:43 65 18 99/59 L 01/27/23 02:42 01/27/23 01:01 01/27/23 01:01 36.1 C L 56 L 15 110/67 01/27/23 01:00 60 Pulse Ox O2 Del Method O2 Flow Rate 01/27/23 17:40 96 Room Air 01/27/23 17:30 98 Oxymask 1 01/27/23 17:20 99 Oxymask 3 01/27/23 17:10 100 Oxymask 5 01/27/23 17:04 100 Oxymask 7 01/27/23 14:27 96 Room Air 01/27/23 14:13 94 Room Air 01/27/23 07:37 95 Room Air 01/27/23 05:36 95 Room Air 01/27/23 03:30 01/27/23 03:30 98 01/27/23 03:05 97 01/27/23 03:05 01/27/23 03:00 98 01/27/23 02:43 94 Room Air 01/27/23 02:42 93 Room Air 01/27/23 01:01 Room Air 01/27/23 01:01 95 Room Air 01/27/23 01:00 Pain Intensity Chest: Pain Intensity: 0 Transfer of Care Handoff Completed per policy Notes Mental Status: alert / awake / arousable and participated in evaluation Patient Amnestic to Procedure: Yes Nausea / Vomiting: adequately controlled Pain: adequately controlled Airway Patency, RR, SpO2: stable & adequate BP & HR: stable & adequate Hydration State: stable & adequate Anesthetic Complications: no major complications apparent
[2023-01-28] MEDS: SODIUM CHLORIDE 0.9% 1,000 ML IV SCH (03:11)
[2023-01-28 03:28] LABS: Appearance Urine Clear (Clear); Bacteria Urine Automated Negative (Negative); Bilirubin Urine Negative (Negative); Blood Urine Negative (Negative); Color Urine Dark Yellow; Glucose Urine UA Negative (Negative); Ketones Urine Trace (Negative); Leukocyte Esterase Urine Negative (Negative); Nitrite Urine Negative (Negative); Protein Urine Trace (Negative); RBC Urine Automated 0-4 /hpf (0-4); Urobilinogen Urine Negative (Negative); pH Urine 5.5 (4.5-7.5)
[2023-01-28] MEDS: cefTRIAXone SODIUM 2,000 MG in DEXTROSE 5 % MINI-B 50 ML IV SCH (06:03)
[2023-01-28 07:55] LABS: Hematocrit (blood only) 37.5 % (42.0-52.0); Hemoglobin 12.6 g/dl (14.0-18.0); Mean Corpuscular Hemoglobin 29.3 pg (25.0-34.0); Mean Corpuscular Hgb Conc 33.6 g/dL (32.0-36.0); Mean Corpuscular Volume 87.2 fL (80.0-100.0); Mean Platelet Volume 10.8 fL (9.4-12.4); Platelet Count 176 K/uL (130-400); RDW Coefficient of Variation 14.4 % (11.5-14.5); RDW Standard Deviation 46.3 fL (36.4-46.3); White Blood Count 11.23 K/ul (4.8-10.8)
--- NOTE | 2023-01-28 07:55 | Surgery Progress Note ---
Date of Service January 28, 2023 Assessment & Plan (1) Cholecystitis: Plan: POD [address] Carrera Reports no abdominal pain but TTP in RUQ 4/10, soft nondistended MYA drain sang. 20/51cc in 12/24hr port sites CDI dermabond no s/s infection noted Denies N/V, Fever chills, Encouraged ambulation, please get patient OOB Advanced diet to fulls , order for MALLORY VSS AM CMP, and CBC pending Will monitor Admission and Anticipated Discharge Date Admission Date: January 27, 2023 Subjective Patient sitting up in bed Reports no abdominal pain, however is TTP in RUQ 4/10 "sore" tolerating clear diet Denies CP, SOB, Fever/chills Review of Systems Constitutional: no fever and no chills Respiratory: no dyspnea Cardiovascular: no chest pain Gastrointestinal: no abdominal pain, no nausea and no vomiting Genitourinary: no problem reported Musculoskeletal: no problem reported Physical Exam Physical Exam: alert awake Constitutional: cooperative and comfortable; no acute distress Respiratory: normal respiratory effort and able to speak in complete sentences; no respiratory distress Cardiovascular: Rate/Rhythm: regular rate Gastrointestinal (Abdomen): Inspection/Auscultation: + abdominal surgical incision (CDI dermabond ) and + abdominal surgical drain present (MYA sanguineous drainage ) Percussion/Palpation: + abdomen tender (RUQ 4/10) and abdomen soft; no guarding and abdomen not rigid Results & Data Vital Signs (Past 12 Hours) Vital Signs Temp Pulse Resp BP Pulse Ox O2 Del Method 01/28/23 07:07 98.6 F 67 16 119/72 94 Room Air 01/28/23 01:23 98.3 F 71 18 124/69 94 Room Air 01/27/23 21:25 97.7 F 80 18 158/82 H 94 Room Air PG Care Time/CCT Total # of Minutes Spent Total Time Spent with Patient: Total time spent is greater than 50% in coordination of care (as documented) at patient's floor/unit and/or counseling patient: Coding Level of Care Code 21004 Post Operative Follow-Up Diagnoses Cholecystitis K81.9
[2023-01-28 08:18] LABS: Albumin Globulin Ratio 1.3 (0.9-2); Albumin Level 3.4 gm/dl (3.4-5.0); BUN Creatinine Ratio 16.5 (10-20); Bilirubin,Total 0.6 mg/dl (0.2-1.0); Calcium 8.5 mg/dl (8.6-10.3); Creatinine Clr Calc Pharmacy 68.1 ml/min; Est GFR (African American) 93.6 ml/min; Est GFR (Non-African American) 80.7 ml/min; Globulin 2.6 gm/dl (2.5-4.0)
[2023-01-28] MEDS ORDERED: TIMOLOL MALEATE 0.5% OP SOLN 5 ML BTL OP SCH (10:30)
[2023-01-28] MEDS ORDERED: oxyCODONE HCL IR 5 MG TAB (IMMEDIATE RELEASE) PO PRN (12:23)
--- NOTE | 2023-01-28 14:49 | Hospitalist Progress Note ---
Date of Service January 28, 2023 Assessment & Plan (1) Cholecystitis: Plan: Acute. Appreciate general surgery consultation and recommendations. Laparoscopic cholecystectomy completed on January 27. Postoperative day #1. MYA drain remains in place. He is now on a full liquid diet. Enteral pain control measures switched to as needed oral oxycodone. IV fluids have been discontinued. (2) History of smoking: Plan: Not a current issue. Plan Anticipate discharge back to home tomorrow, January 29 Admission and Anticipated Discharge Date Admission Date: January 27, 2023 Subjective Alert and oriented. He is feeling much better after laparoscopic cholecystectomy. He is now on a full liquid diet. IV fluids have been discontinued. Antibiotics discontinued. Parenteral pain control measures switched to as needed oral dosing of oxycodone. I suspect he will go home tomorrow, January 29. Surgery entry noted Review of Systems 2 Review of Systems: Constitutional-no fever or chills ENT-no blurred vision, no double vision, no epistaxis, no sore throat Respiratory-no cough, no wheezing, no shortness of breath Cardiac-no palpitations, no chest pain, no syncope GI-nausea resolved. Right upper quadrant and epigastric discomfort have resolved postoperatively. No vomiting. -no urinary retention, no urinary incontinence, no dysuria, no hematuria Musculoskeletal-no joint pain, no muscle tenderness Skin-no bruising, no rashes, no pruritus Neuro-no isolated weakness, no paresthesia, no weakness Psych-no depression, no anxiety Physical Exam 2 Physical Exam: General-alert and oriented x3, no fevers, no chills HEENT-head atraumatic and normocephalic, pupils equal and reactive to light, extraocular muscles intact Neck-no lymphadenopathy or thyromegaly, trachea midline Chest-clear to auscultation percussion. No rales wheezing or rhonchi Cardiac-regular rate and rhythm, normal S1 and S2 Abdomen-active bowel sounds. Mild tenderness at the surgical sites. No rebound or guarding. No masses Extremities-no cyanosis, clubbing, or edema Neuro-cranial nerves II through XII intact, motor and sensory function within normal limits, strength symmetrical, no focal deficits Psych-normal affect, normal mood Results & Data Results & Data Vital Signs (Past 12 Hours) Vital Signs Temp Pulse Resp BP Pulse Ox O2 Del Method 01/28/23 11:11 36.7 C 63 16 121/62 96 Room Air 01/28/23 07:07 37 C 67 16 119/72 94 Room Air Laboratory Results 01/28/23 07:09 01/28/23 07:09 PG Care Time/CCT Total # of Minutes Spent Total Time Spent with Patient: Total time spent is greater than 50% in coordination of care (as documented) at patient's floor/unit and/or counseling patient: Coding Level of Care Code 18769 SUB INP/OBS CARE 3/50MIN Diagnoses Cholecystitis K81.9 History of smoking Z87.891
--- NOTE | 2023-01-28 15:29 | Electrocardiogram Report ---
Test Reason : Blood Pressure : / mmHG Vent. 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
[2023-01-28] MEDS: TIMOLOL MALEATE 0.5% OP SOLN 5 ML BTL OPR SCH (19:45)
--- OUTSIDE RECORDS SUMMARY | 2023-01-29 00:24 | External Medical Summary | Summary of Care ---
Author Name Unknown Organization [facility] Address [address] [place] [address] Phone [phone] Care Team Providers Care Speech Writer Name Role Phone Jose Waddell MD Primary Care Provider [phone] Reason for Visit * Reason Comments Follow Up Denies changes * Precert (Within 10 days (routine)) - Authorized Specialty Diagnoses / Procedures Referred By Derik guevara Referred To Contact Ophthalmology Diagnoses Exudative age-related macular degeneration, right eye, with active choroidal neovascularization (HCC) Procedures [place] INJECTION, FARICIMAB-SVOA, 0.1 MG [place] INTRAVITREAL NJX PHARMACOLOGIC AGT SPX Lebron Odell DO [address] [place] [address] Referral ID Status Reason Start Date Expiration Date V isits Requested Visits Authorized [id number] Authorized Precert 03/10/2022 03/13/2099 999 [id number] Encounter Details Date Type Department Care Team Description 08/11/2022 Office Visit Ophthalmology, [facility] [address] [place] [address] Lebron Odell DO [address] [place] [address] Exudative age-related macular degeneration of right eye with active choroidal neovascularization (HCC)*; Intermediate stage nonexudative age-related macular degeneration of left eye; Nevus of choroid of right eye Allergies No known active allergiesdocumented as of this encounter (statuses as of 08/11/2022) Medications Medication Sig Dispensed Refills Start Date End Date Status PRESERVISION AREDS 2 PO CAPS one tablet twice daily 0 Active Timolol Maleate 0.5 % Ophthalmic Solution (Timoptic) Instill 1 Drop into both eyes every morning. 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 (HCC) 2 mg IZ PRN 09/09/2021 09/09/2022 Active Faricimab-svoa (Vabysmo) intravitreal inj 6 mgIndications:Exudative age-related macular degeneration of right eye with active choroidal neovascularization (HCC) 6 mg IZ PRN 10/21/2021 10/21/2022 Active ROPivacaine (Naropin) inj 1.5 mgIndications:Exudative age-related macular degeneration of right eye with active choroidal neovascularization (HCC) 1.5 mg IJ PRN 10/21/2021 10/21/2022 Active documented as of this encounter (statuses as of 08/11/2022) Active Problems Problem Noted Date Nevus, choroidal 02/04/2016 Epiretinal membrane (ERM) of left eye Overview: ICD-10 update of inactive term Exudative age-related macula r degeneration of right eye with active choroidal neovascularization 02/04/2016 Retinal edema 08/06/2008 Family history of other cardiovascular d iseases 10/16/2001 Overview: ICD-10 update of inactive term Benign prostatic hyperplasia 10/16/2001 Overview: ICD-10 update of inactive term ICD-10 update of inactive term FM [id number] DIS NEC 10/16/2001 HTN, goal below 140/90 10/16/2001 VRL HEPATITIS B W/O MENT. OF HEPATIC COMA, ACUTE OR UNSPEC., WITHOUT MENT. OF 05/10/2000 FAM HX-DIABETES MELLITUS 05/10/2000 NONE documented as of this encounter (statuses as of 08/11/2022) Immunizations Name Administration Dates Next Due TD - Tetanus/Diptheria (ADULT) 05/12/1998 documented as of this encounter Social History Tobacco Use Types Packs/Day Years Used Date Smoking Tobacco: Former Smokeless Tobacco: Never Comments:1995 Alcohol Use Standard Drinks/Week Comments No 0 (1 standard drink = 0.6 oz pur e alcohol) occ Sex Assigned at Date Recorded Not on file Job Start Date Occupation Industry Not on file Not on file Not on file documented as of this encounter Progress Notes * Lebron Odell, DO - 08/11/2022 8:15 AM EDT [facility] [place] HPI: Mendoza Larsen is an 86 year old male who presents for AMD. Base Eye Exam Visual Acuity (Snellen - Linear) Right Left Dist cc 20/60 -1 20/40 +1 Dist ph cc NI NI Tonometry (8:18 AM) Right Left Pressure 12 12 Pupils Pupils APD Right PERRL None Left PERRL None Visual Andrew (Counting fingers) Right Left Full Full Extraocular Movement Right Left Full, Ortho Full, Ortho Neuro/Psych Oriented x3: Yes Mood/Affect: Normal Dilation Both eyes: 0.5% Proparacaine @ 8:17 AM Dilation #2 Both eyes: 1.0% Mydriacyl, 2.5% Phenylephrine @ 8:17 AM Dilation Comments Patient cautioned that effects of dilation may last 2-7 hours dependant upon individual reaction. It was discussed that driving while dilated is not recommended. Strabismus Exam Correction: sc Observations: Ortho Distance Near Near +3DS N Bifocals cover/uncover, and alternate cover EXTERNAL: The ocular adnexae are unremarkable. SLE: Lids/Lashes: wnl OU Conjunctiva/Sclera: quiet OU; small conjunctival nevus w/ cysts over plica OD Cornea: clear OU Anterior Chamber: deep and quiet OU Iris: normal OU; no NVI OU Lens: +PCIOL OU ; +yag cap Dilated fundus exam OD: vitreous: clear w/ pvd optic nerve: 0.75 w/ vertical thinning, no edema/pallor/NVD macula: +rpe changes/atrophy, drusen; flat nevus along superior arcade approx. 2x2.5DD; resolved heme vessels: wnl midperiphery: +retinal tuft SN w/ laser barrier periphery: no RT/RD Dilated fundus exam OS: vitreous: clear w/ pvd optic nerve: 0.7 w/ vertical thinning, no edema/pallor/NVD macula: +ERM vessels: traction changes midperiphery: wnl periphery: no RT/RD OCT Interpretation: OD: trace srfluid, stable PED --STABLE, prior improved, prior drastically improved (Vabysmo), priormild worse, prior no change, prior worse, prior STABLE, prior worse 49um, prior STABLE, prior improved 86um, prior worse, prior STABLE, prior improved, prior worse, prior improved 58um, prior trace worse, prior improved 76um prior worse 144um, prior STABLE, prior STABLE, prior improved, prior improved 22um, prior improved 18um, prior improved, prior improved, prior worse, prior improved, prior improved, prior mixed, prior worse, prior improved/dry, prior worse 76um, prior improved 83um, prior worse 70um OS: +ERM w/ clefting - STABLE, prior STABLE, prior stable A/P: 1. 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 -s/p Eylea (09/09/21, 07/29/21, 06/17/21, 05/13/21, 04/15/21, 03/11/21, 02/04/21, 12-24-21, 11-19-21, 10-08-21, 09-02-, 07/30/20, 05-07-21, 03-26-21, 02-04-20, 12-25-20, 10-30-20, 09-18-20, 08-07-20, 07-10-20, 05/16/19,04-12-20, 03-15-20, 01-31-19, 12-20-19, 11-08-19, 09-27-19, 07-06-19, 04-05-19, 01-11-18, 10-19-18, 2018, 05-12-18, 02-23-17, 12-01-17, 09-15-17, 06/23/16, 03/17/16....12/24/15-improved and dry, 10/01/15--mixed, 07/23/15-improved, 04/30/15-improved and dry, 02/05/15-improved and dry, 11/06/14-improved and dry, 08/06/14-improved and dry, 05/13/14-improved and dry, 02/19/14--improved and dry, 06/13/13-improved 31um, 04/04/13-improved 36um, prior 01/24/13-improved 26um, 10/11/12, 08/02/12-dry, 05/25/12, 03/10/12, 12/28/11, 10/20/11, 08/11/11) -worse at 6 weeks - in past went 10-15 weeks btwn injections -Vabysmo (06/02/22, 03/24/22, 01/27/22, 12/02/21, 10/21/21)--great response -10 weeks OS: dry -no cnv -recommend AREDS2 MVI as directed and Amsler grid qday 2. Retinal Tuft/tear w/ traction OD -s/p laser 05/07/09, laser barrier mature and no progression 3. ERM OS -VA good; Clefting of fovea, h/o mild CME-h/o improvement on Acular qid -pt happy w/ vision--observe 4. Chroidal Nevus OD -photos 12/12/07 -no change 5. Pseudophakia OU -stable 6. 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 -photos 05/07/2009 -no change 8. 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 Elliott - - currently using Timolol OU qam -followed by SVETLANA/Jignesh TIMEOUT PROCEDURE: correct patient identity-YES correct procedure and consent-YES verified side and site-YES correct patient position-YES all necessary equipment/prior studies present-YES reviewed special requirements of this patient-YES PROCEDURE: Intravitreal injection of Vabysmo (faricimab) 6mg OD INFORMED CONSENT: Risks, benefits and alternatives have been discussed with the patient. Risks include, but are not limited to: retinal tears, detachments, hemorrhage, glaucoma, infection, cataracts, need for more procedures and the potential risk of arterial thromboembolic events following use of intravitreal VEGF inhibitors defined as nonfatal stroke, nonfatal myocardial infarction or vascular . Patient is aware of these risks and consents to the procedure. DESCRIPTION OF PROCEDURE: The procedure site was confirmed. Topical proparacaine was applied to the surface of the eye after which subconjunctival anesthetic was administered. The area was prepped in the standard aseptic manner with 5% Betadine solution. An eyelid speculum was placed and 6mg (0.05 ml) of Vabysmo was injected 3.75 mm posterior to the limbus into the midvitreous cavity with a 30 gauge short needle. The eye speculum was removed, Betadine was flushed from the eye and optic nerve perfusion was insured. The patient tolerated the procedure without difficulty and was given followup instructions and instructedto use ophthalmic ointment 3x/day as needed. Lebron Odell DO, performed the procedure in its entirety. F/u 10-12 weeks - dilate and OCT OU Lebron Odell DO [address] CC: Abel Egan, OD PCP: Jose Romo MD documented in this encounter Nursing Notes * LAYTON Bush - 08/11/2022 8:36 AM EDT Mendoza Larsen to receive sixth Vabysmo 6mg Injection of the Right eye. Correct eye confirmed with patient and marked by Lebron Odell DO Vabysmo 6mg lot # [id number] Exp. Date: 02/2024 * Sandy Stanford RN - 08/11/2022 8:11 AM EDT Mendoza Larsen is a 86 year old year old male who presents for AMD OU. Last Office Visit: 06/02/2022 (in office), Visit date not found (telemedicine) Patient currently states no change in vision. Are you diabetic? No Do you drive? yes OCT image(s) of both eyes acquired and filed/scanned into chart. documented in this encounter Plan of Treatment Health Maintenance Due Date Last Done Comments COVID-19 Vaccine (#1) 05/24/1936 Depression Screening, Annual for Pts 12 and Over 1947 Albumin/Creatinine Ratio 11/24/1953 DTaP,Tdap,and Td Vaccines (1 - Tdap) 05/13/1998 05/12/1998 Hepatitis B (2 of 2 - CpG 2- dose series) 06/07/2000 05/10/2000 Pneumococcal Vaccine: 65+ Ye ars (1 - PCV) 11/24/2000 Zoster Vaccines (2 of 3) 09/06/2010 07/12/2010 Influenza Vaccine (FLU shot) (Season Ended) 2022 GARDASIL-HPV IMMUNIZATION SERIES Aged Out No longer eligible based on patient's age to complete this topic MENINGOCOCCAL (MENACTRA/MENVEO) Aged Out No longer eligible based on patient's age to complete this topic documented as of this encounter Medical Devices Not on filedocumented as of this encounter Visit Diagnoses Diagnosis Exudative age-related macular degeneration of right eye with active choroidal neovascularization (HCC)- Primary 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 Given 08/11/2022 8:38 AM EDT 6 mg Eye Right Given 06/02/2022 8:49 AM EDT 6 mg Ey e Right Given 03/24/2022 8:39 AM EST 6 mg Ey e Right ROPivacaine (Naropin) inj 1.5 mg 1.5 mg (0.3 mL), Injection, PRN Other, Starting on Tue10/21/21 at 0845, Until Tue10/21/22 at 0844, For 365 days Given 08/11/2022 8:37 AM EDT 1.5 mg Eye R ight Given 06/02/2022 8:49 AM EDT 1.5 mg Ey e Right Given 03/24/2022 8:39 AM EST 1.5 mg Ey e Right documented in this encounter Care Teams Speech Writer Relationship Specialty Start Date End Date Jose Waddell MD [address] [place] [id number] PCP - General Internal Medicine 05/12/17 documented as of this encounter
--- OUTSIDE RECORDS SUMMARY | 2023-01-29 00:24 | External Medical Summary | Summary of Care ---
Author Name Unknown Organization [facility] Address [address] [place] [address] Phone [phone] Care Team Providers Care Screen Printing Press Operator Name Role Phone [place] [facility] Primary Care Provider Reason for Visit * Reason Comments Follow Up 10-[address] OU Vabysmo * Precert (Within 10 days (routine)) - Authorized Specialty Diagnoses / Procedures Referred By Derik guevara Referred To Contact Ophthalmology Diagnoses Exudative age-related macular degeneration, right eye, with active choroidal neovascularization (HCC) Procedures [place] INJECTION, FARICIMAB-SVOA, 0.1 MG [place] INTRAVITREAL NJX PHARMACOLOGIC AGT SPX eLbron Odell, DO [address] [place] [address] Referral ID Status Reason Start Date Expiration Date V isits Requested Visits Authorized [id number] Authorized Precert 03/10/2022 03/13/[phone] Encounter Details Date Type Department Care Team Description 11/02/2022 Office Visit Ophthalmology, [facility] [address] [place] [address] Lebron Odell DO [address] [place] [address] Exudative age-related macular degeneration of right eye with active choroidal neovascularization (HCC)* Allergies No known active allergiesdocumented as of this encounter (statuses as of 11/02/2022) Medications Medication Sig Dispensed Refills Start Date End Date Status PRESERVISION AREDS 2 PO CAPS one tablet twice daily 0 Active Timolol Maleate 0.5 % Ophthalmic Solution (Timoptic) Instill 1 Drop into both eyes every morning. 10 mL 3 09/02/2020 Active Hospital, Clinic, or Other Facility Administered Medication Ordered Dose Route Frequency Start Date End Date Status Faricimab-svoa (Vabysmo) intravitreal inj 6 mgIndications:Exudative age-related macular degeneration of right eye with active choroidal neovascularization (HCC) 6 mg IZ PRN 11/02/2022 11/02/2023 Active ROPivacaine (Naropin) inj 1.5 mgIndications:Exudative age-related macular degeneration of right eye with active choroidal neovascularization (HCC) 1.5 mg IJ PRN 11/02/2022 11/02/2023 Active documented as of this encounter (statuses as of 11/02/2022) Active Problems Problem Noted Date Nevus, choroidal [...] term ICD-10 update of inactive term FM [id number] DIS NEC 10/16/2001 HTN, goal below 140/90 10/16/2001 VRL HEPATITIS B W/O MENT. OF HEPATIC COMA, ACUTE OR UNSPEC., WITHOUT MENT. OF 05/10/2000 FAM HX-DIABETES MELLITUS 05/10/2000 NONE documented as of this encounter (statuses as of 11/02/2022) Immunizations Name Administration Dates Next Due TD - Tetanus/Diptheria (ADULT) 05/12/1998 documented as of this encounter Social History Tobacco Use Types Packs/Day Years Used Date Smoking Tobacco: Former Smokeless Tobacco: Never Tobacco Cessation:Counseling Given: No Comments:1995 Alcohol Use Standard Drinks/Week Comments No 0 (1 standard drink = 0.6 oz pur e alcohol) occ Sex Assigned at Date Recorded Not on file Job Start Date Occupation Industry Not on file Not on file Not on file documented as of this encounter Progress Notes * Lebron Odell, - 11/02/2022 8:00 AM EDT [facility] [place] HPI: Mendoza Larsen is an 86 year old male who presents for AMD. Base Eye Exam Visual Acuity (Snellen - Linear) Right Left Dist cc 20/60 -2 20/40 -1 Dist ph cc NI Correction: Glasses Tonometry (Tonopen, 8:07 AM) Right Left Pressure 9 10 Pupils Pupils Light Shape React Right PERRL 3 Round Brisk Left PERRL 3 Round Brisk Visual Andrew (Counting fingers) Right Left Full Full Extraocular Movement Right Left Full Full Neuro/Psych Oriented x3: Yes Dilation Both eyes: 0.5% Proparacaine @ 8:06 AM Dilation #2 Both eyes: 1.0% Mydriacyl, 2.5% Phenylephrine @ 8:06 AM EXTERNAL: The ocular adnexae are unremarkable. SLE: [...] OD: trace srfluid, stable PED --STABLE, prior STABLE, prior improved, prior drastically improved (Vabysmo), prior mild worse, prior no change, prior worse, prior STABLE, prior worse 49um, prior STABLE, prior improved 86um, prior worse, prior STABLE, prior improved, prior worse, prior improved 58um,prior trace worse, prior improved 76um prior worse 144um, prior STABLE, prior STABLE, prior improved, prior improved 22um, prior improved 18um, prior improved, prior improved, prior worse, prior improved, prior improved, prior mixed, prior worse, prior improved/dry, prior worse 76um, prior [id number], prior worse 70um OS: +ERM w/ clefting - STABLE, prior STABLE, prior STABLE, prior stable A/P: 1. [...] (09/09/21, 07/29/21, 06/17/21, 05/13/21, 04/15/21, 03/11/21, 02/04/21, 12-24-20, 11-19-20, 10-08-20, 09-02-20, 07/30/20, 05-07-20, 21, 02-04-20, 20, 20, 20, 20, 20, 05/16/19,20, 20, 01-31-19, 19, 19, 09-27-19, 19, 04-05-18, 18, 18, 08-03-2017, 18, 02-23-17, 17, 09-15-16, 06/23/16, 03/17/16....12/24/15-improved and dry, 10/01/15--mixed, 07/23/15-improved, 04/30/15-improved and dry, 02/05/15-improved and dry, 11/06/14-improved and dry, 08/06/14-improved and dry, 05/13/14-improved and dry, 02/19/14--improved and dry, 06/13/13-improved 31um, 04/04/13-improved 36um, prior 01/24/13-improved 26um, 10/11/12, 08/02/12-dry, 05/25/12, 03/10/12, 12/28/11, 10/20/11, 08/11/11) -worse at 6 weeks - in past went 10-15 weeks btwn injections -Vabysmo (08/11/22, 06/02/22, 03/24/22, 01/27/22, 12/02/21, 10/21/21)--great response -12 weeks OS: dry -no cnv -recommend AREDS2 [...] glaucoma laser OU with Dr. Elliott - 4-2017 - currently using Timolol OU qam -followed [...] performed the procedure in its entirety. F/u 12-14weeks - dilate and OCT OU Lebron Odell DO 0523 CC: Abel Egan, OD PCP: Jose Romo MD documented in this encounter Nursing Notes * Zackery Arreola RN - 11/02/2022 8:37 AM EDT Mendoza Larsen to receive seventh Vabysmo 6mg Injection of the Right eye. Correct eye confirmed with patient and marked by Lebron Odell DO Vabysmo 6mg lot # [id number] Exp. Date: 03/14/24 * Zackery Arreola RN - 11/02/2022 8:08 AM EDT Mendoza Larsen is a 86 year old year old male who presents for AMD OU. Last Office Visit: 08/11/2022 (in office), Visit date not found (telemedicine) Patient currently states no change in vision. Are you diabetic? No Do you drive? yes OCT image(s) of both eyes acquired and filed/scanned into chart. documented in this encounter Plan of Treatment Upcoming Encounters Date Type Specialty Care Team Description 02/09/2023 Office Visit Ophthalmology Lebron Odell, DO [address] [place] [address] Health Maintenance Due Date Last Done Comments COVID-19 Vaccine (#1) 05/24/1936 Depression Screening, Annual for Pts 12 and Over 1947 Albumin/Creatinine Ratio 11/24/1953 DTaP,Tdap,and Td Vaccines (1 - Tdap) 05/13/1998 05/12/1998 Hepatitis B (2 of 2 - CpG 2- dose series) 06/07/2000 05/10/2000 Pneumococcal Vaccine: 65+ Ye ars (1 - PCV) 11/24/2000 Zoster Vaccines (2 of 3) 09/06/2010 07/12/2010 Influenza Vaccine (FLU shot) (#1) 2022 GARDASIL-HPV IMMUNIZATION SERIES Aged Out No longer eligible based on patient's age to complete this topic MENINGOCOCCAL (MENACTRA/MENVEO) Aged Out No longer eligible based on patient's age to complete this topic documented as of this encounter Medical Devices Not on filedocumented as of this encounter Visit Diagnoses Diagnosis Exudative age-related macular degeneration of right eye with active choroidal neovascularization (HCC)- Primary documented in this encounter Administered Medications Active Administered Medications - up to 3 most recent administrations Medication Order MAR Action Action Date Dose Rate Site Faricimab-svoa (Vabysmo) intravitreal inj 6 mg 6 mg, Intravitreal, PRN Other, Starting on Tue11/02/22 at 0848, Until Tue11/02/23 at 0847, For 365 days, Each single dose vial and transfer filter needle should only be used for the treatment of a single eye. Given 11/02/2022 9:08 AM EDT 6 mg Eye Right ROPivacaine (Naropin) inj 1.5 mg 1.5 mg, Injection, PRN Other, Starting on Tue11/02/22 at 0848, Until Tue11/02/23 at 0847, For 365 days Given 11/02/2022 9:08 AM EDT 1.5 mg Eye Right documented in this encounter Care Teams Screen Printing Press Operator Relationship Specialty Start Date End Date [place] [facility] [place] [id number] [facility] [address] PCP - General 11/02/22 documented as of this encounter
--- OUTSIDE RECORDS SUMMARY | 2023-01-29 00:24 | External Medical Summary | Summary of Care ---
Author Name Unknown Organization [facility] Address [address] [place] [address] Phone [phone] Care Team Providers Care Financial Services Director Name Role Phone [place] [facility] Primary Care Provider Reason for Visit * Reason Comments Follow Up 10-[address] OU Vabysmo * Precert (Within 10 days (routine)) - Authorized Specialty Diagnoses / Procedures Referred By Derik guevara Referred To Contact Ophthalmology Diagnoses Exudative age-related macular degeneration, right eye, with active choroidal neovascularization (HCC) Procedures [place] INJECTION, FARICIMAB-SVOA, 0.1 MG [place] INTRAVITREAL NJX PHARMACOLOGIC AGT SPX Lebron Odell, DO [address] [place] [address] Referral ID Status Reason Start Date Expiration Date V isits Requested Visits Authorized [id number] Authorized Precert 03/10/2022 03/13/2099 999 [id number] Encounter Details Date Type Department Care Team Description 11/02/2022 Office Visit Ophthalmology, [facility] [address] [place] [address] Lebron Odell DO [address] [place] [address] Exudative age-related macular degeneration of right eye [...] term ICD-10 update of inactive term FM [id number] DIS NEC 10/16/2001 HTN, goal below 140/90 10/16/2001 VRL HEPATITIS B W/O MENT. OF HEPATIC COMA, ACUTE OR UNSPEC., WITHOUT MENT. OF 05/10/2000 FAM HX-DIABETES MELLITUS 05/10/2000 NONE documented as of this encounter (statuses as of 11/02/2022) Social History Tobacco Use Types Packs/Day Years [...] Progress Notes * Lebron Odell, DO - 11/02/2022 8:00 AM EDT [facility] [place] HPI: Mendoza Larsen [...] worse, prior improved/dry, prior worse 76um, prior [id number], prior worse 70um OS: +ERM w/ clefting [...] 05/13/21, 04/15/21, 03/11/21, 02/04/21, 12-24-21, 11-19-21, 10-08-21, 21, 07/30/20, 21, 21, 02-04-20, 12-25-20, 10-30-20, 09-18-20, 08-07-20, 07-10-20, 05/16/19,04-12-20, 20, 01-31-19, 19, 19, 09-27-19, 19, 04-05-18, 01-11-18, 18, 08-03-2017, 18, 02-23-17, 12-01-16, 09-15-16, 06/23/16, 03/17/16....12/24/15-improved and dry, 10/01/15--mixed, 07/23/15-improved, [...] Lebron Odell DO Vabysmo 6mg lot # [id number] Exp. Date: 03/14/24 * Zackery Arreola RN [...] Team Description 02/09/2023 Office Visit Ophthalmology Lebron Odell DO [address] [place] [address] Health Maintenance Due Date Last Done Comments [...] neovascularization (HCC)- Primary documented in this encounter Care Teams Financial Services Director Relationship Specialty Start Date End Date [place] [facility] [address] [place] [address] PCP - General 11/02/22 documented as of this encounter
--- OUTSIDE RECORDS SUMMARY | 2023-01-29 00:25 | External Medical Summary | Summary of Care ---
Author Name Unknown Organization [facility] Address [address] [place] [address] Phone [phone] Care Team Providers Care Patient Service Representative Name Role Phone Jose Waddell MD Primary Care Provider [phone] Reason for Visit * Reason Comments Follow Up Denies changes * Precert (Within 10 days (routine)) - Authorized Specialty Diagnoses / Procedures Referred By Derik guevara Referred To Contact Ophthalmology Diagnoses Exudative age-related macular degeneration, right eye, with active choroidal neovascularization (HCC) Procedures ME INJECTION, FARICIMAB-SVOA, 0.1 MG ME INTRAVITREAL [facility] SPX Lebron Odell DO [address] [place] [address] Referral ID Status Reason Start Date Expiration Date V isits Requested Visits Authorized [id number] Authorized Precert 03/10/2022 03/13/2099 999 999 Encounter Details Date Type Department Care Team Description 08/11/2022 Office Visit Ophthalmology, [facility] [address] [place] [address] Lebron Odell DO [address] [place] [address] Exudative age-related macular degeneration of right eye [...] term ICD-10 update of inactive term FM [id number] DIS NEC 10/16/2001 HTN, goal below 140/90 [...] - 08/11/2022 8:15 AM EDT [facility] [place] HPI: Mendoza [...] Lebron Odell DO Vabysmo 6mg lot # [id number] Exp. Date: 02/2024 * Sandy Stanford RN [...] Right documented in this encounter Care Teams Patient Service Representative Relationship Specialty Start Date End Date Jose Waddell MD [address] [place] [id number] PCP - General Internal Medicine 05/12/17 documented as of this encounter
[2023-01-29 06:14] LABS: Hematocrit (blood only) 36.7 % (42.0-52.0); Hemoglobin 12.4 g/dl (14.0-18.0); Mean Corpuscular Hemoglobin 29.2 pg (25.0-34.0); Mean Corpuscular Hgb Conc 33.8 g/dL (32.0-36.0); Mean Corpuscular Volume 86.6 fL (80.0-100.0); Mean Platelet Volume 10.7 fL (9.4-12.4); Platelet Count 172 K/uL (130-400); RDW Coefficient of Variation 14.2 % (11.5-14.5); RDW Standard Deviation 45.3 fL (36.4-46.3); Red Blood Count 4.24 M/uL (4.70-6.10); White Blood Count 9.74 K/ul (4.8-10.8)
[2023-01-29 06:29] LABS: Albumin Level 3.3 gm/dl (3.4-5.0); Bilirubin,Total 0.8 mg/dl (0.2-1.0); Calcium 8.3 mg/dl (8.6-10.3); Potassium 3.8 mmol/L (3.5-5.1)
[2023-01-29 06:36] LABS: Albumin Globulin Ratio 1.3 (0.9-2); BUN Creatinine Ratio 14.5 (10-20); Creatinine Clr Calc Pharmacy 70.8 ml/min; Est GFR (African American) 95.1 ml/min; Globulin 2.5 gm/dl (2.5-4.0); Total Protein 5.8 gm/dl (6.0-8.3)
[2023-01-29] MEDS ORDERED: PANTOprazole 40 MG TAB PO SCH (09:00)
[2023-01-29] MEDS: TIMOLOL MALEATE 0.5% OP SOLN 5 ML BTL OPR SCH (10:16)
--- NOTE | 2023-01-29 11:41 | Discharge Summary ---
Date of Service January 29, 2023 Admission HPI Per Admitting Provider Mendoza is an 87-year-old man with no significant past medical history who presented to the emergency room with an acute episode of progressive worsening nonradiating epigastric abdominal pain. Patient was at his 's high school reunion. He recalls eating a cheese steak sandwich and his pain started slowly but gradually worse after that. ROS + nausea. He denies headache, shortness of breath, back pain, hematuria, or prior abdominal surgery. In the ED, vitals were stable, within normal limits. Labs were mostly normal. He had no leukocytosis (WBC-8.79), anemia, or thrombocytopenia. CMP was mostly normal, save for elevated glucose-148. AST/ALT were normal-29/01. Alk phos was also normal-56. Troponin-3.5. Lipase-72. Gallbladder ultrasound, however, revealed multiple gallstones with sludge, mild gallbladder wall thickening at 4 mm. It also revealed a 14 x 9 mm cyst in the right kidney, and an approximately 20 x 22 x 27 mm area of increased echogenicity in the superior pole of the right kidney. He received IV cefoxitin 2 g, an NS bolus x0.25 L, fentanyl for pain control, and IV Zofran. General surgery was consulted, who recommended admission for nonsurgical management, with surgery following. Hospitalist service was then consulted for admission. Principal Diagnosis Acute cholecystitis Discharge Exam General-alert and oriented x3, no fevers, no chills HEENT-head atraumatic and normocephalic, pupils equal and reactive to light, extraocular muscles intact Neck-no lymphadenopathy or thyromegaly, trachea midline Chest-clear to auscultation percussion. No rales wheezing or rhonchi Cardiac-regular rate and rhythm, normal S1 and S2 Abdomen-active bowel sounds. Mild tenderness at the surgical sites. No rebound or guarding. No masses . MYA drain remains in place Extremities-no cyanosis, clubbing, or edema Neuro-cranial nerves II through XII intact, motor and sensory function within normal limits, strength symmetrical, no focal deficits Psych-normal affect, normal mood Discharge Data Allergies Allergy/AdvReac Type Severity Reaction Status Date / Time No Known Allergies Allergy Mild Verified 01/27/23 01:56 Consultations 01/27/23 04:25 ED Decision to Admit Stat 01/27/23 05:37 Consult General Surgery Routine Procedures Performed Operation Date: 01/27/23 11:10 Actual Procedures p Laparoscopic Cholecystectomy Possible Open(Not Applicable) - Alfredo Carrera DO Ordered Studies 01/27/23 01:23 gallbladder Stat 01/27/23 03:45 CT abd pelvis IV con only Stat Hospital Course (1) Cholecystitis: Acute. Appreciate general surgery consultation and recommendations. Laparoscopic cholecystectomy completed on January 27. Postoperative day #2. MYA drain remains in place. Surgery will decide if this will come out prior to discharge today. Diet has been advanced. He is not requiring any narcotic pain medication. (2) History of smoking: Not a current issue. Plan Home today, January 29. Surgery will determine if the MYA drain can be removed prior to discharge. Total Time Total Time Spent Total Time Spent (In Minutes): 45 minutes Discharge Plan Discharge Items Patient Disposition: Home - Self-Care Reason For Visit: Abdominal pain Discharge Diagnosis: Acute cholecystitis Condition on Discharge: Good Activity: As commented below Lifting: No more than 10 pounds Bathing Comment: you can shower, no pools or baths for 2 weeks Exercise/Sports: Wait until after follow-up appointment Exercise Comment: walking is fine Driving/Machine Use: no driving if taking narcotic pain medication Non-emergency contact: Surgeon Call non-emergency contact if: you have any medication questions, your symptoms worsen, your pain is unusual for you, your temperature is above 101.5, your wound has increased redness, your wound has increased drainage and your wound pain has increased Follow-up/Referrals: Alfredo Carrera DO [Surgeon] - (call office for a follow up in 2 weeks ) [facility] [Primary Care Provider] - Diet: Regular and Low Fat Addtl Attending Provider Instructions: You have surgical glue called dermabond on your surgical site incisions. You may shower with this on. This will tend to come off within a couple of weeks. Do not pick at it. Take all of you antibiotics as directed. SPECIAL CARE INSTRUCTIONS: * May use ibuprofen for pain as tolerated. * Expect some swelling and bruising. Call your doctor if: * Temperature above 101 degrees * Pain not relieved by pain medicine ordered * There is increased drainage or redness from any incision * Any yellowing from the skin or eyes * You have any unanswered questions or concerns [phone]. FOLLOW UP VISIT: If not already scheduled, please call the office for a follow-up visit. OFFICE PHONE NUMBER: Office General surgery prescribed an oral antibiotic to take for 1 week. This has been sent to your pharmacy Pending Studies at Discharge: Yes Studies:: surgical pathology Stand-Alone Forms: My [facility], Smoking Cessation Medications and DC Order Prescriptions: New amoxicillin-pot clavulanate 875-125 mg tablet 1 tab PO Q12H 10 Days Qty: 20 0RF Rx Instructions: take one tab by mouth every 12 hours for the next 10 days. Continue to take all your medication even if you are feeling better Continued timolol maleate 0.5 % drops 1 drp ophthalmic (eye) DIRECTED PreserVision AREDS-2 250-90-40-1 mg Capsule 1 tab PO BID Discharge Orders: Discharge Order (Routine); Ordered 01/29/23 Ordered By: Maged Mariee Admission Data Admit Date/Time: 01/27/23 04:21 Attending Provider: Maged Mariee Admit Provider: Jagjit Bee Primary Care Provider: [facility] Other Providers: Josemanuel Santos; Corie Medina; Mohit Padilla; Nasim Oshea; Alfredo Carrera; Chandler Montes; Mica Guerra; Mati Todd; Tanner Curiel; Cathleen Franklin; Greg Villagomez Coding Level of Care Code 64222 INP/OBS DISCH >30 MIN Diagnoses Cholecystitis K81.9 History of smoking Z87.891
--- NOTE | 2023-01-29 12:38 | Surgery Progress Note ---
Date of Service January 29, 2023 Assessment & Plan (1) Cholecystitis: Plan: F/U S/P laparoscopy cholecystectomy, POD 2 pt is doing fine, no abdominal pain, tolerated diet, remove MYA, pt can be discharged home today, he can take a shower on 01/31/2023 no heavy lifting > 15 LBS for 4 weeks. pt should contact Dr Carrera office if pt develops severe abdominal pain, fever T >38. or nausea vomiting. pt and his understood, I answered all questions. F/U Dr. Carrera 2 weeks. Admission and Anticipated Discharge Date Admission Date: January 27, 2023 Subjective F/U S/P laparoscopy cholecystectomy, POD 2 pt is doing fine, no abdominal pain, tolerated diet, no nausea, no vomiting, no fever, MYA 30ml/last shift, serosanguineous fluid. Physical Exam Constitutional: WD/WN, vitals as above Eyes: PERRL, conjunctivae normal, anicteric sclerae Neck: trachea midline, no thyromegaly Respiratory: normal respiratory effort, lungs clear to auscultation Cardiovascular: RRR, no murmur, no edema Gastrointestinal (Abdomen): soft, mild tenderness at incision site, no rebound pain, no distend, BS +. all incisions intact, no redness. Musculoskeletal: no cyanosis or clubbing, extremities motor strength 5/5 Neurologic: patellar DTR's 2+ bilat, sensation intact Psychiatric: A+Ox3, euthymic affect Results & Data Vital Signs (Past 12 Hours) Vital Signs Temp Pulse Pulse Resp BP BP Pulse Ox 01/29/23 12:07 36.8 C 62 68 18 149/86 H 141/80 H 93 01/29/23 07:20 36.8 C 68 18 149/86 H 93 O2 Del Method 01/29/23 12:07 01/29/23 07:20 Room Air Laboratory Results Lab Results 01/27/23 01/27/23 01/28/23 Range/Units 00:28 02:34 03:00 WBC 8.79 (4.8-10.8) K/ul RBC 5.05 (4.70-6.10) M/uL Hgb 14.6 (14.0-18.0) g/dl Hct 44.9 (42.0-52.0) % MCV 88.9 (80.0-100.0) fL MCH 28.9 (25.0-34.0) pg MCHC 32.5 (32.0-36.0) g/dL RDW Std Deviation 45.1 (36.4-46.3) fL RDW Coeff of Ciera 14.1 (11.5-14.5) % Plt Count 221 (130-400) K/uL MPV 10.9 (9.4-12.4) fL Immature Gran % (Auto) 0.5 % Neut % (Auto) 81.2 % Lymph % (Auto) 12.2 % Winn % (Auto) 4.4 % Eos % (Auto) 1.0 % Baso % (Auto) 0.7 % Neut # (Auto) 7.14 H (1.40-6.50) K/uL Lymph # (Auto) 1.07 L (1.20-3.40) K/uL Winn # (Auto) 0.39 (0.11-0.59) K/uL Eos # (Auto) 0.09 (0.00-0.50) K/uL Baso # (Auto) 0.06 (0.00-0.20) K/uL Immature Gran # (Auto) 0.04 (0.01-0.20) K/uL Sodium Cancelled 141 Potassium Cancelled 4.6 Chloride Cancelled 109 H Carbon Dioxide Cancelled 28 Anion Gap Cancelled 4 BUN Cancelled 18 Creatinine Cancelled 0.86 Est Cr Clr Drug Dosing Cancelled 64.6 Est GFR ( Amer) Cancelled 90.4 Est GFR (Non-Af Amer) Cancelled 78.0 BUN/Creatinine Ratio Cancelled 20.9 H Glucose Cancelled 148 H Calcium Cancelled 9.3 Total Bilirubin Cancelled 0.6 AST Cancelled 18 ALT Cancelled 11 Alkaline Phosphatase Cancelled 56 Troponin I High Sens Cancelled 3.5 Total Protein Cancelled 6.7 Albumin Cancelled 3.8 Globulin Cancelled 2.9 Albumin/Globulin Ratio Cancelled 1.3 Lipase Cancelled 72 Urine Color Dark Yellow Urine Appearance Clear (Clear) Urine pH 5.5 (4.5-7.5) Ur Specific Bronson 1.040 H (1.000-1.030) Urine Protein Trace H (Negative) Urine Glucose (UA) Negative (Negative) Urine Ketones Trace H (Negative) Urine Blood Negative (Negative) Urine Nitrite Negative (Negative) Urine Bilirubin Negative (Negative) Urine Urobilinogen Negative (Negative) Ur Leukocyte Esterase Negative (Negative) Urine WBC (Auto) 1-5 (0-5) /hpf Urine RBC (Auto) 0-4 (0-4) /hpf U Hyaline Cast (Auto) 1-5 (0-5) /lpf U Epithel Cells (Auto) 10-20 H (0-5) /lpf Urine Bacteria (Auto) Negative (Negative) 01/28/23 01/29/23 Range/Units 07:09 05:33 WBC 11.23 H 9.74 (4.8-10.8) K/ul RBC 4.30 L 4.24 L (4.70-6.10) M/uL Hgb 12.6 L 12.4 L (14.0-18.0) g/dl Hct 37.5 L 36.7 L (42.0-52.0) % MCV 87.2 86.6 (80.0-100.0) fL MCH 29.3 29.2 (25.0-34.0) pg MCHC 33.6 33.8 (32.0-36.0) g/dL RDW Std Deviation 46.3 45.3 (36.4-46.3) fL RDW Coeff of Ciera 14.4 14.2 (11.5-14.5) % Plt Count 176 172 (130-400) K/uL MPV 10.8 10.7 (9.4-12.4) fL Immature Gran % (Auto) % Neut % (Auto) % Lymph % (Auto) % Winn % (Auto) % Eos % (Auto) % Baso % (Auto) % Neut # (Auto) (1.40-6.50) K/uL Lymph # (Auto) (1.20-3.40) K/uL Winn # (Auto) (0.11-0.59) K/uL Eos # (Auto) (0.00-0.50) K/uL Baso # (Auto) (0.00-0.20) K/uL Immature Gran # (Auto) (0.01-0.20) K/uL Sodium 140 138 Potassium 4.0 3.8 Chloride 109 H 105 Carbon Dioxide 24 29 Anion Gap 7 4 BUN 13 11 Creatinine 0.79 0.76 Est Cr Clr Drug Dosing 68.1 70.8 Est GFR ( Amer) 93.6 95.1 Est GFR (Non-Af Amer) 80.7 82.0 BUN/Creatinine Ratio 16.5 14.5 Glucose 130 H 105 H Calcium 8.5 L 8.3 L Total Bilirubin 0.6 0.8 AST 252 H 104 H ALT 245 H 160 H Alkaline Phosphatase 51 52 Troponin I High Sens Total Protein 6.0 5.8 L Albumin 3.4 3.3 L Globulin 2.6 2.5 Albumin/Globulin Ratio 1.3 1.3 Lipase Urine Color Urine Appearance (Clear) Urine pH (4.5-7.5) Ur Specific Bronson (1.000-1.030) Urine Protein (Negative) Urine Glucose (UA) (Negative) Urine Ketones (Negative) Urine Blood (Negative) Urine Nitrite (Negative) Urine Bilirubin (Negative) Urine Urobilinogen (Negative) Ur Leukocyte Esterase (Negative) Urine WBC (Auto) (0-5) /hpf Urine RBC (Auto) (0-4) /hpf U Hyaline Cast (Auto) (0-5) /lpf U Epithel Cells (Auto) (0-5) /lpf Urine Bacteria (Auto) (Negative)
--- NOTE | 2023-01-31 21:33 | Billing Data ---
Date of Service January 31, 2023 Coding Level of Care Code 49125 INT INP/OBS CARE
--- NOTE | 2023-02-04 07:38 | Coding Query ---
PATHOLOGY To promote full compliance with coding requirements relating to patient care, physician participation is requested in all cases of sword swallower uncertainty. Please assist us with the question(s) below: Please review the Pathology report and please document any relevant diagnosis(es) below: Diagnosis(es):invasive adenocarcinoma of gallbladder Thank you Lesia ANNA
== END 2023-01-29 13:37 | disposition home or self-care (01) | DRG 418 ==
LOC: ED 00:52 → SUATTDRO 04:21 → 3N 04:21